=== PATIENT | female | born 1955 | race American Indian/Alaskan Native ===

== ENCOUNTER 2019-02-23 06:36 | Day surgery (SDC) | payer BC ==
[2019-02-23 07:50] LABS: Basophils # (Auto) 0.1 K/mm3 (0.0-0.1); Basophils % (Auto) 1.5 % (0.0-1.8); Eosinophils # (Auto) 0.4 K/mm3 (0.0-0.4); Eosinophils % (Auto) 5.1 % (0.0-4.3); Hematocrit 38.6 % (30.3-42.9); Hemoglobin 12.7 gm/dl (10.1-14.3); Lymphocytes # (Auto) 2.1 K/mm3 (1.2-5.4); Lymphocytes % (Auto) 25.8 % (13.4-35.0); Mean Corpuscular HGB Conc 33 % (30-34); Mean Corpuscular Volume 90 fl (79-97); Monocytes # (Auto) 0.5 K/mm3 (0.0-0.8); Monocytes % (Auto) 6.4 % (0.0-7.3); Platelet Count 290 K/mm3 (140-440); Red Blood Count 4.28 M/mm3 (3.65-5.03)
[2019-02-23 08:07] LABS: BUN/Creatinine Ratio 17; Blood Urea Nitrogen 12 mg/dL (7-17); Hemolysis Index 6
[2019-02-23 08:12] LABS: INR 0.95 (0.87-1.13)
[2019-02-23 08:13] LABS: Partial Thromboplastin Time 25.7 Sec. (24.2-36.6)
[2019-02-23] MEDS ORDERED: NACL 0.9% 500 ML 500 ML ONE (08:13)
--- NOTE | 2019-02-23 08:38 | Short Stay Summary ---
Short Stay Documentation Date of service: 02/23/19 - History Principal diagnosis: Venous compression Past Medical History: other Social history: no significant social history - Allergies and Medications Current Medications: Allergies No Known Allergies Allergy (Verified 02/23/19 07:11) Home Medications Medication Instructions Recorded Confirmed Last Taken Type Gabapentin [Neurontin] 300 mg PO TID 02/23/19 02/23/19 02/21/19 History Meloxicam 15 mg PO DAILY 02/23/19 02/23/19 02/21/19 History Metoprolol [Lopressor] 100 mg PO BID 02/23/19 02/23/19 02/21/19 History Pantoprazole [Protonix] 40 mg PO QDAY 02/23/19 02/23/19 02/21/19 History Ranitidine HCl [Zantac 150 MG TAB] 150 mg PO DAILY 02/23/19 02/23/19 02/21/19 History Sitagliptin Phos/Metformin HCl 1 tab PO QDAY 02/23/19 02/23/19 02/21/19 History [Janumet XR 100-1,000 mg] oxyCODONE /ACETAMINOPHEN [Percocet 1 tab PO Q6HR PRN 02/23/19 02/23/19 02/21/19 History 5/325] Active Medications Sodium Chloride (Nacl 0.9% 500 Ml) 500 mls @ 50 mls/hr IV DIRECT KRISHNA Last Admin: 02/23/19 08:19 Dose: 50 mls/hr Documented by: - Physical exam General appearance: no acute distress Integumentary: no rash, no growths HEENT: Atraumatic Lungs: Normal air movement Breasts: deferred Gastrointestinal: normal Female Genitourinary: deferred Rectal Exam: deferred Extremities: abnormal (ble edema) Neurological: Normal gait, Normal speech - Brief post op/procedure progress note Date of procedure: 02/23/19 Pre-op diagnosis: venous compression Post-op diagnosis: same Procedure: left renal venagram, BLE venogram Anesthesia: local Surgeon: ANA MARIA CALVERT Estimated blood loss: minimal Pathology: none Condition: stable - Disposition Condition at discharge: Good Disposition: DC-01 TO HOME OR SELFCARE Short Stay Discharge Plan Activity: advance as tolerated Weight Bearing Status: Weight Bear as Tolerated Diet: regular Wound: keep clean and dry, per your surgeon's advice Follow up with: CHERISE RICHARDSON MD [Primary Care Provider] - 7 Days
[2019-02-23] MEDS ORDERED: HEPARIN/NS 5000 UNIT/500ML(CATH LAB) 1,000 ML IR ONE (08:45)
[2019-02-23] MEDS ORDERED: SUBLIMAZE ONE (08:45)
[2019-02-23] MEDS ORDERED: VERSED ONE (08:45)
[2019-02-23] MEDS ORDERED: XYLOCAINE 2% INFILTRATI ONE (08:45)
[2019-02-23] MEDS ORDERED: NACL 0.9% 500 ML 500 ML IV SCH (09:00)
--- NOTE | 2019-02-23 09:29 | Operative Report ---
Operative Report Operative Report: Exam: Diagnostic venogram of left renal vein and bilateral lower extremities through a right brachial vein approach Clinical indication: Patient with a history of bilateral lower extremity swelling, abdominal pain and cramping Date: 02/23/2019 Procedure: Following an explanation of the risks, benefits and alternatives; written informed consent was obtained. The patient was brought to the geographic suite and placed in supine position on the examination table. Initial ultrasound evaluation of her arm demonstrated patent brachial and basilic veins are. The patient's right upper arm was prepped and draped in usual sterile fashion. 1% lidocaine was used for anesthesia. Under ultrasound guidance, a 7 cm 21-gauge needle was advanced into the right brachial vein. A 0.018, guidewire was advanced centrally. The needle was removed and a 5 Scottish sheath placed over the guidewire. A 5 Scottish vertebral catheter was then advanced over the guidewire. Together the guidewire and catheter were advanced over the guidewire under fluoroscopy into the infrarenal IVC. The catheter and guidewire were then withdrawn proximally and engaged the left renal vein. Catheter guidewire within advanced under fluoroscopy into the midportion a left renal vein. Benign atrophy was performed. This demonstrates prompt drainage of the left kidney into the IVC. No significant collateral flow was identified. The catheter guidewire were then withdrawn approximately into the IVC. Together catheter and guidewire were then advanced into the right common femoral vein. Venography was performed of the pelvic veins. This demonstrates significant compression of the right external iliac vein extending into the right common femoral vein. The right common iliac vein appears to be patent. The catheter and guidewire were then used to cannulate the left common iliac vein. The catheter guidewire within advanced fluoroscopy to the left common femoral vein. Venography was performed. This demonstrates significant compression of the left common iliac vein. The left external iliac vein and left common femoral vein appear patent. There is sluggish flow throughout both pelvic pain secondary to depression. The IVC was then evaluated following the injection of contrast. There appears to be no significant depression of the IVC. Impression: 1) Left renal venogram demonstrating flow to the left renal vein without significant collateral formation. 2) Bilateral lower extremity venogram demonstrating significant compression of the right external iliac vein extending into the right common femoral vein and left common iliac vein.
[2019-02-23 12:02] VITALS: BP 148/91
== END 2019-02-23 10:45 | disposition home or self-care (01) ==
LOC: CATHLABREC 06:36
PROVIDERS: ATTEND Radiology Diagnostic Radiology
DX: I87.1 Compression of vein (principal); E78.00 Pure hypercholesterolemia, unspecified; I10 Essential (primary) hypertension; K21.9 Gastro-esophageal reflux disease without esophagitis; M17.0 Bilateral primary osteoarthritis of knee; F32.9 Major depressive disorder, single episode, unspecified; Z98.890 Other specified postprocedural states; Z79.899 Other long term (current) drug therapy; Z79.01 Long term (current) use of anticoagulants
CPT/HCPCS: 36011; 36415; 75822; 75831; 76937; 80048; 85025; 85610; 85730; 99156; 99157; C1751; C1769; C1887; J1644; J2250; J3010; J7040; Q9967

== ENCOUNTER 2019-02-28 09:09 | Outpatient (CLI) | payer BC ==
[2019-02-28 09:58] LABS: Erythrocyte Sedimentation Rate 14 mm/Hr (0-20)
[2019-02-28 10:03] LABS: Alanine Aminotransferase 41 units/L (7-56); BUN/Creatinine Ratio 18; Blood Urea Nitrogen 14 mg/dL (7-17); Calcium 9.2 mg/dL (8.4-10.2); Hemolysis Index 2
[2019-02-28 10:36] LABS: Hematocrit 38.5 % (30.3-42.9); Hemoglobin 12.7 gm/dl (10.1-14.3); Mean Corpuscular HGB Conc 33 % (30-34); Mean Corpuscular Volume 91 fl (79-97); Platelet Count 268 K/mm3 (140-440); Red Blood Count 4.24 M/mm3 (3.65-5.03)
== END 2019-02-28 09:10 | disposition home or self-care (01) ==
LOC: LAB 09:09
PROVIDERS: ATTEND Specialist
DX: G45.9 Transient cerebral ischemic attack, unspecified (principal); H47.20 Unspecified optic atrophy; E78.00 Pure hypercholesterolemia, unspecified; I10 Essential (primary) hypertension; K21.9 Gastro-esophageal reflux disease without esophagitis; M19.90 Unspecified osteoarthritis, unspecified site
CPT/HCPCS: 36415; 80053; 85027; 85652